=== PATIENT | male | born 1960 | race Two or more races ===

== ENCOUNTER 2018-11-09 19:13 | Emergency (ER) | payer MEDICAID ==
[~2018-11-09] VITALS: Ht 180.3 cm; Wt 72.8 kg
[2018-11-09 19:17] VITALS: BP 138/78; PULSE 88; RESP 18; Ht 180.3 cm; Wt 72.8 kg
--- NOTE | 2018-11-09 19:51 | ERD ---
ER Documentation Chief Complaint Chief Complaint STATES HE NEEDS MED REFILL FOR COPD MEDS HPI 58-year-old male, with history of COPD, chronic back pain and insomnia, presents the emergency department, requesting a refill for his medications. No complaints at this time, he denies chest pain, no shortness of breath, no fever or chills. ROS All systems reviewed and are negative except as per history of present illness. Medications Home Meds Active Scripts Baclofen* (Baclofen*) 10 Mg Tablet, 10 MG PO DAILY, #14 TAB Prov:CHRISTINA CHAVEZ MD 11/09/18 Risperidone* (Risperidone* Liq) 1 Mg/1 Ml Solution, 2 MG PO DAILY, #60 ML Prov:CHRISTINA CHAVEZ MD 11/09/18 Tiotropium [place]* (Spiriva*) 18 Mcg Cap.w.dev, 1 CAP INHALATION DAILY, #30 CAP Prov:CHRISTINA CHAVEZ MD 11/09/18 Albuterol Sulfate* (Ventolin HFA*) 18 Gm Hfa.aer.ad, 2 PUFF INHALATION Q4H, #1 INHALER Prov:CHRISTINA CHAVEZ MD 11/09/18 Allergies Allergies: Coded Allergies: Penicillins (Verified Allergy, Unknown, 11/09/18) PMhx/Soc History of Surgery: No Anesthesia Reaction: No Hx Neurological Disorder: No Hx Respiratory Disorders: Yes (COPD) Hx Cardiac Disorders: No Hx Psychiatric Problems: Yes (BIPOLAR) Hx Miscellaneous Medical Probl: No Hx Alcohol Use: No Hx Substance Use: No Hx Tobacco Use: No Smoking Status: Never smoker Physical Exam Vitals Vital Signs Date Temp Pulse Resp B/P (MAP) Pulse Ox O2 O2 Flow FiO2 Time Delivery Rate 11/09/18 98.1 88 18 138/78 97 19:17 (98) Physical Exam Const: No acute distress Head: Atraumatic Eyes: Normal Conjunctiva ENT: Normal External Ears, Nose and Mouth. Neck: Full range of motion. No meningismus. Resp: Clear to auscultation bilaterally Cardio: Regular rate and rhythm, no murmurs Abd: Soft, non tender, non distended. Normal bowel sounds Skin: No petechiae or rashes Back: No midline or flank tenderness Ext: No cyanosis, or edema Neur: Awake and alert Psych: Normal Mood and Affect Procedures/MDM Vital signs stable, no respiratory distress, differential diagnosis include but not limited to: Acute respiratory infection bacterial/viral/fungal. Asthm a/COPD, pneumonitis, allergies, GERD. Less likely foreign body aspiration, cardiac related, aspiration pneumonia, malignancy. Physical examination and clinical presentation consistent most likely with COPD, no evidence of acute exacerbation. During the ED course the patient remained stable, no new complaints. Treatment options and clinical impression discussed with the patient who agrees with management. The patient is stable to be treated outpatient and will be discharged home. Some side effects of prescribed medications (headache, rash, nausea, vomiting, diarrhea, drowsiness, habituation, bleeding, hypertension, interactions with other medications) were reviewed. The patient was instructed to follow up with the primary care provider in the next 48h. If symptoms persist, worsen or new symptoms develop, then patient should return to the ED immediately. Disclaimer: Inadvertent spelling and grammatical errors are likely due to EHR/dictation software use and do not reflect on the overall quality of patient care. Also, please note that the electronic time recorded on this note does not necessarily reflect the actual time of the patient encounter. Departure Diagnosis: Primary Impression: Encounter for medication refill Additional Impressions: Chronic back pain COPD (chronic obstructive pulmonary disease) Condition: Stable Patient Instructions: Taking Medicine Safely Additional Instructions: Thank you very much for allowing us to participate in your care. Your health and safety is our top priority at [facility]. The evaluation in the emergency department has been done to rule out an acute em ergency. Chronic, [id number] conditions may have not been evaluated; therefore, you need to follow up with a primary care provider in the next 48h. If symptoms persist, worsen or new symptoms develop, then patient should return to the ED immediately. Call your primary care doctor TOMORROW for an appointment during the next 2-4 days and bring all the information provided. Have prescriptions filled and follow precisely the directions on the label. If the symptoms get worse and your provider is unavailable, return to the Emergency Department immediately. CHRISTINA CHAVEZ MD Nov 09, 2018 19:51
[2018-11-09] MEDS ORDERED: RISP1SOL PO (19:54)
[2018-11-09] MEDS ORDERED: TIOT18CA INHALATION (19:54)
[2018-11-09] MEDS ORDERED: ALBU18HF INHALATION (19:54)
[2018-11-09] MEDS ORDERED: BACL10TA PO (19:54)
== END 2018-11-09 20:05 | disposition home or self-care (01) ==
LOC: FTE 19:13
DX: M54.9 Dorsalgia, unspecified (principal); J44.9 Chronic obstructive pulmonary disease, unspecified
CPT/HCPCS: 99283